=== PATIENT | female | born 1965 | race African-American/Black ===

== ENCOUNTER 2017-08-09 12:39 | Inpatient (IN) | payer MEDICARE, OTHER ==
[~2017-08-09] VITALS: Ht 175.3 cm; Wt 76.2 kg
[2017-08-09 15:36] LABS: CHLORIDE 103 mEq/L (98-107)
[2017-08-09 15:38] LABS: BASOPHILS % 1.1 % (0.0-2.0); HEMOGLOBIN. 12.1 g/dL (12.0-16.0); LYMPHOCYTES % 28.3 % (20.0-50.0); MEAN CORPUSCULAR HEMOGLOBIN 35.6 pg (28.0-32.0); MEAN CORPUSCULAR VOLUME 105.9 fL (81.0-99.0); MONOCYTES % 10.4 % (2.0-8.0); NEUTROPHILS % 58.2 % (40.0-76.0); PLATELET 169 x1000/uL (130-400); PROTHROMBIN TIME 10.8 sec (9.4-11.6); RED CELL DISTRIBUTION WIDTH 16.5 % (11.6-14.6)
[2017-08-09] MEDS ORDERED: ALBUTEROL (0.083%) 2.5MG/3ML NEB HHN ONE (16:45)
[2017-08-09] MEDS ORDERED: ACETAMINOPHEN 325MG TABLET PO PRN (18:45)
[2017-08-09 20:00] VITALS: BP_SYST 134; BP_SYST 201; BP_DIAS 48; BP_DIAS 95
[2017-08-09] MEDS ORDERED: ENOXAPARIN 30MG/0.3ML SYR SUBCUT SCH (21:00)
[2017-08-09] MEDS ORDERED: FAMOTIDINE 20MG TABLET PO SCH (21:00)
[2017-08-09] MEDS ORDERED: TEMAZEPAM 15MG CAPSULE PO PRN (21:00)
[2017-08-09] MEDS ORDERED: DEXTROSE 50% WATER 50ML SYRINGE IV PRN (21:15)
[2017-08-09] MEDS ORDERED: LISI10TA5 PO (23:05)
[2017-08-09] MEDS ORDERED: RANI150T12 PO (23:05)
[2017-08-10] VITALS: BP 106/48
[2017-08-10] MEDS ORDERED: SEVE800T8 PO (00:52)
[2017-08-10] MEDS ORDERED: CALC667T2 PO (00:52)
[2017-08-10 04:00] VITALS: BP 123/60
[2017-08-10 05:53] LABS: BASOPHILS % 1.3 % (0.0-2.0); EOSINOPHILS % 1.7 % (0.0-5.0); HEMATOCRIT. 33.5 % (36.0-48.0); HEMOGLOBIN. 11.3 g/dL (12.0-16.0); LYMPHOCYTES % 32.8 % (20.0-50.0); MEAN CORPUSCULAR HEMOGLOBIN 35.7 pg (28.0-32.0); MEAN CORPUSCULAR VOLUME 106.2 fL (81.0-99.0); MEAN PLATELET VOLUME 7.9 fl (7.4-10.4); MONOCYTES % 10.8 % (2.0-8.0); NEUTROPHILS % 53.4 % (40.0-76.0); PLATELET 142 x1000/uL (130-400); RED BLOOD CELL COUNT 3.15 mill/uL (4.2-5.4); RED CELL DISTRIBUTION WIDTH 16.9 % (11.6-14.6)
[2017-08-10 06:43] LABS: PHOSPHORUS 5.8 mg/dL (2.5-4.9)
[2017-08-10 08:00] VITALS: BP 128/71
[2017-08-10] MEDS: BLOOD SUGAR DIAGNOSTIC STRIP TEST SCH ×2 (08:05→12:21)
[2017-08-10] MEDS ORDERED: SEVELAMER CARBONATE 800 MG TABLET PO SCH ×2 (08:10→13:10)
[2017-08-10] MEDS: CALCIUM ACETATE 667MG CAPSULE PO SCH ×2 (08:43→13:10)
[2017-08-10] MEDS ORDERED: AMLODIPINE 10MG TABLET PO SCH (09:00)
[2017-08-10] MEDS ORDERED: FOLIC ACID/VITAMIN B COMP W-C TABLET PO SCH (09:00)
[2017-08-10 12:30] VITALS: BP 125/70
[2017-08-10 13:41] VITALS: BP 125/70
== END 2017-08-10 14:10 | disposition home or self-care (01) | DRG 640 ==
LOC: ER 12:42 → 7WST 16:40 → EDBEDREQTM 16:53 → EDBEDREQ 16:53 → ENRESERV 17:04
DX: E87.5 Hyperkalemia (principal); N18.6 End stage renal disease; E11.22 Type 2 diabetes mellitus with diabetic chronic kidney disease; E46 Unspecified protein-calorie malnutrition; I12.0 Hypertensive chronic kidney disease with stage 5 chronic kidney disease or end stage renal disease; E11.319 Type 2 diabetes mellitus with unspecified diabetic retinopathy without macular edema; Z94.0 Kidney transplant status; E78.5 Hyperlipidemia, unspecified; D64.9 Anemia, unspecified; F17.210 Nicotine dependence, cigarettes, uncomplicated; Z87.11 Personal history of peptic ulcer disease; Z96.641 Presence of right artificial hip joint; E21.1 Secondary hyperparathyroidism, not elsewhere classified; G90.8 Other disorders of autonomic nervous system; I45.10 Unspecified right bundle-branch block; I44.0 Atrioventricular block, first degree; K21.9 Gastro-esophageal reflux disease without esophagitis; Z86.73 Personal history of transient ischemic attack (TIA), and cerebral infarction without residual deficits; Z99.2 Dependence on renal dialysis; Z98.51 Tubal ligation status; Z87.19 Personal history of other diseases of the digestive system; Z87.01 Personal history of pneumonia (recurrent); E89.0 Postprocedural hypothyroidism; Z90.89 Acquired absence of other organs; Z88.0 Allergy status to penicillin; Z88.8 Allergy status to other drugs, medicaments and biological substances; Z79.899 Other long term (current) drug therapy
CPT/HCPCS: 36415; 71045; 80048; 80053; 82962; 83735; 84100; 84484; 85025; 85610; 93005; 99291; J1650; J7030; J7611

== ENCOUNTER 2018-06-26 23:14 | Inpatient (IN) | payer MEDICARE, OTHER ==
[~2018-06-26] VITALS: Ht 175.3 cm; Wt 79.4 kg
[~2018-06-26 23:14] MED LIST: CALC667T2 PO; LISI10TA5 PO; RANI150T43 PO; SEVE800T8 PO
[2018-06-27] VITALS (37 sets, daily range): BP systolic 88–183; BP diastolic 45–108
[2018-06-27] MEDS ORDERED: ONDANSETRON HCL 4MG/2ML INJ IV STA (00:37)
[2018-06-27 00:40] LABS: BASOPHILS % 0.5 % (0.0-2.0); EOSINOPHILS % 0.2 % (0.0-5.0); HEMATOCRIT. 41.5 % (36.0-48.0); HEMOGLOBIN. 13.4 g/dL (12.0-16.0); LYMPHOCYTES % 8.3 % (20.0-50.0); MEAN CORPUSCULAR HEMOGLOBIN 35.2 pg (28.0-32.0); MEAN CORPUSCULAR VOLUME 109.1 fL (81.0-99.0); MEAN PLATELET VOLUME 8.4 fl (7.4-10.4); MONOCYTES % 3.8 % (2.0-8.0); NEUTROPHILS % 87.2 % (40.0-76.0); PLATELET 138 x1000/uL (130-400); RED BLOOD CELL COUNT 3.81 mill/uL (4.2-5.4); RED CELL DISTRIBUTION WIDTH 16.4 % (11.6-14.6)
[2018-06-27 00:45] LABS: CHLORIDE 107 mEq/L (98-107)
[2018-06-27] MEDS ORDERED: CALCIUM CHLORIDE 1GM/10ML SYR IV ONE ×2 (00:45→15:32)
[2018-06-27] MEDS ORDERED: ALBUTEROL (0.083%) 2.5MG/3ML NEB HHN ONE (00:45)
[2018-06-27] MEDS ORDERED: DEXTROSE 50% WATER 50ML SYRINGE IV ONE (00:45)
[2018-06-27] MEDS ORDERED: SODIUM BICARBONATE 8.4% 1 MEQ/ML 50ML SYR IV ONE (00:45)
[2018-06-27] MEDS ORDERED: INSULIN REGULAR (HUMULIN R) 300UNITS/3ML IV ONE (00:45)
[2018-06-27] MEDS ORDERED: ONDANSETRON HCL 4MG/2ML INJ ONE (00:47)
[2018-06-27] MEDS ORDERED: SODIUM BICARBONATE 100 MEQ in DEXTROSE 5% WATER 1,000 ML IV SCH (01:00)
[2018-06-27] MEDS ORDERED: MAGNESIUM/ALUMINUM HYDROXIDE/SIMETHICONE 30ML UDC PO PRN (06:15)
[2018-06-27] MEDS ORDERED: DOCUSATE SODIUM 100MG CAPSULE PO PRN (06:15)
[2018-06-27] MEDS ORDERED: CLONIDINE 0.1MG TABLET PO PRN (06:15)
[2018-06-27] MEDS ORDERED: DIPHENHYDRAMINE 50MG/ML VIAL IV PRN (06:15)
[2018-06-27] MEDS ORDERED: LORAZEPAM 2MG/ML CPJ IV PRN (06:15)
[2018-06-27] MEDS ORDERED: HYDROCODONE/ACETAMINOPHEN 10/325MG TABLET PO PRN (06:15)
[2018-06-27] MEDS ORDERED: IPRATROPIUM/ALBUTEROL 0.5-3(2.5)MG/3ML NEB INH PRN (06:15)
[2018-06-27] MEDS ORDERED: GUAIFENESIN 200MG/10ML SUGAR FREE UDC PO PRN (06:15)
[2018-06-27] MEDS ORDERED: ACETAMINOPHEN 325MG TABLET PO PRN (06:15)
[2018-06-27] MEDS ORDERED: DEXTROSE 50% WATER 50ML SYRINGE IV PRN (06:15)
[2018-06-27] MEDS ORDERED: HYDROMORPHONE HCL/PF 2MG/ML CPJ IV PRN (06:15)
[2018-06-27] MEDS ORDERED: ONDANSETRON HCL 4MG/2ML INJ IV PRN (06:15)
[2018-06-27] MEDS: BLOOD SUGAR DIAGNOSTIC STRIP TEST SCH ×4 (06:51→21:06)
[2018-06-27] MEDS: INSULIN LISPRO 100 UNITS/ML SUBCUT SCH ×4 (07:00→21:00)
[2018-06-27] MEDS: ASPIRIN 81MG EC TABLET PO SCH (08:42)
[2018-06-27] MEDS: PANTOPRAZOLE SODIUM 40 MG/VIAL IV SCH (08:42)
[2018-06-27] MEDS: ONDANSETRON HCL 4MG/2ML INJ IV PRN (08:42)
[2018-06-27] MEDS: ENOXAPARIN 30MG/0.3ML SYR SUBCUT SCH (08:42)
[2018-06-27 12:36] LABS: HEMATOCRIT. 37.8 % (36.0-48.0); HEMOGLOBIN. 12.4 g/dL (12.0-16.0); MEAN CORPUSCULAR HEMOGLOBIN 34.9 pg (28.0-32.0); PLATELET 116 x1000/uL (130-400); RED BLOOD CELL COUNT 3.57 mill/uL (4.2-5.4); RED CELL DISTRIBUTION WIDTH 16.1 % (11.6-14.6)
[2018-06-27 12:49] LABS: BG BASE EXCESS 5.8 mmol/L (-2.0-2.0); BG CARBOXYHEMOGLOBIN 0.9 % (0.5-1.5); BG DEOXYHEMOGLOBIN 3.6 % (0.0-5.0); BG FRACTION INSPIRED OXYGEN 21; BG HCO3 ACT 29.2 mmol/L (22.0-26.0); BG METHEMOGLOBIN 0.1 % (0.0-1.5); BG OXYGEN SATURATION 96.4 % (92.0-98.5); BG OXYHEMOGLOBIN 95.4 % (94.0-97.0); BG PCO2 38.1 mmHg (35.0-45.0); BG PH 7.502 (7.350-7.450); BG PO2 87.1 mmHg (75.0-100.0); BG SAMPLE SITE RIGHT BRACHIAL; BG TOTAL HEMOGLOBIN 12.3 g/dL (12.0-18.0); BG VENT MODE ROOM AIR
[2018-06-27] MEDS: SODIUM CHLORIDE 0.9% INJ 3ML FLUSH IVF SCH ×2 (14:00→21:06)
[2018-06-27] MEDS ORDERED: LEVOFLOXACIN 250MG PREMIX 50 ML IV PRN (14:00)
[2018-06-27] MEDS ORDERED: GENTAMICIN 80MG PREMIX 100 ML IV PRN (14:45)
[2018-06-27 14:53] LABS: PLATELET ESTIMATE DECREASED
[2018-06-27] MEDS ORDERED: SODIUM BICARBONATE 8.4% MEQ/ML 50ML VIAL IV ONE (15:32)
[2018-06-27] MEDS ORDERED: BISACODYL 5MG TABLET PO PRN (16:15)
[2018-06-27] MEDS ORDERED: LACTULOSE 20G/30ML UDC PO PRN (16:15)
[2018-06-27 17:01] LABS: CREATINE KINASE MB FRACTION 1.6 ng/mL (0.5-3.6)
[2018-06-27] MEDS: NICOTINE 14MG PATCH TD SCH ×2 (17:48→17:52)
[2018-06-27] MEDS: HYDROMORPHONE HCL/PF 2MG/ML CPJ IV PRN (18:46)
[2018-06-27 22:41] LABS: CREATINE KINASE MB FRACTION 1.6 ng/mL (0.5-3.6)
[2018-06-28] VITALS (62 sets, daily range): BP systolic 113–193; BP diastolic 58–94
[2018-06-28] MEDS: HYDROMORPHONE HCL/PF 2MG/ML CPJ IV PRN ×2 (01:10→19:07)
[2018-06-28 05:00] LABS: BASOPHILS % 0.8 % (0.0-2.0); EOSINOPHILS % 1.3 % (0.0-5.0); HEMATOCRIT. 38.6 % (36.0-48.0); HEMOGLOBIN. 12.7 g/dL (12.0-16.0); LYMPHOCYTES % 18.6 % (20.0-50.0); MEAN CORPUSCULAR HEMOGLOBIN 35.3 pg (28.0-32.0); MEAN CORPUSCULAR VOLUME 107.3 fL (81.0-99.0); MEAN PLATELET VOLUME 8.5 fl (7.4-10.4); NEUTROPHILS % 71.3 % (40.0-76.0); PLATELET 112 x1000/uL (130-400); RED BLOOD CELL COUNT 3.59 mill/uL (4.2-5.4); RED CELL DISTRIBUTION WIDTH 15.8 % (11.6-14.6)
[2018-06-28 05:27] LABS: CHLORIDE 100 mEq/L (98-107)
[2018-06-28] MEDS: SODIUM CHLORIDE 0.9% INJ 3ML FLUSH IVF SCH ×3 (05:42→22:46)
[2018-06-28] MEDS: BLOOD SUGAR DIAGNOSTIC STRIP TEST SCH ×4 (05:42→21:22)
[2018-06-28] MEDS: INSULIN LISPRO 100 UNITS/ML SUBCUT SCH ×4 (05:42→21:00)
[2018-06-28] MEDS: ENOXAPARIN 30MG/0.3ML SYR SUBCUT SCH (08:00)
[2018-06-28] MEDS: NICOTINE 14MG PATCH TD SCH (09:00)
[2018-06-28] MEDS: PANTOPRAZOLE SODIUM 40 MG/VIAL IV SCH (10:51)
[2018-06-28] MEDS: ASPIRIN 81MG EC TABLET PO SCH (10:52)
[2018-06-28] MEDS: ONDANSETRON HCL 4MG/2ML INJ IV PRN (10:59)
[2018-06-28] MEDS: FOLIC ACID/VITAMIN B COMP W-C TABLET PO SCH (14:59)
[2018-06-28] MEDS: HYDRALAZINE 20MG/ML VIAL IV PRN (15:47)
[2018-06-28] MEDS: DOCUSATE SODIUM 100MG CAPSULE PO SCH (15:51)
[2018-06-29] VITALS (41 sets, daily range): BP systolic 59–173; BP diastolic 44–114
[2018-06-29] MEDS: HYDRALAZINE 20MG/ML VIAL IV PRN (02:09)
[2018-06-29 06:06] LABS: BASOPHILS % 0.4 % (0.0-2.0); EOSINOPHILS % 0.9 % (0.0-5.0); HEMATOCRIT. 35.9 % (36.0-48.0); HEMOGLOBIN. 11.9 g/dL (12.0-16.0); MEAN CORPUSCULAR HEMOGLOBIN 35.3 pg (28.0-32.0); MEAN CORPUSCULAR VOLUME 106.3 fL (81.0-99.0); MEAN PLATELET VOLUME 8.7 fl (7.4-10.4); MONOCYTES % 7.9 % (2.0-8.0); NEUTROPHILS % 80.8 % (40.0-76.0); PLATELET 104 x1000/uL (130-400); RED BLOOD CELL COUNT 3.37 mill/uL (4.2-5.4); RED CELL DISTRIBUTION WIDTH 15.6 % (11.6-14.6)
[2018-06-29 06:09] LABS: PHOSPHORUS 5.5 mg/dL (2.5-4.9)
[2018-06-29] MEDS: BLOOD SUGAR DIAGNOSTIC STRIP TEST SCH ×4 (06:47→21:00)
[2018-06-29] MEDS: INSULIN LISPRO 100 UNITS/ML SUBCUT SCH ×4 (06:47→23:12)
[2018-06-29] MEDS: SODIUM CHLORIDE 0.9% INJ 3ML FLUSH IVF SCH ×3 (06:48→23:13)
[2018-06-29] MEDS: FOLIC ACID/VITAMIN B COMP W-C TABLET PO SCH (08:34)
[2018-06-29] MEDS: PANTOPRAZOLE SODIUM 40 MG/VIAL IV SCH (08:34)
[2018-06-29] MEDS: ONDANSETRON HCL 4MG/2ML INJ IV PRN (08:34)
[2018-06-29] MEDS: DOCUSATE SODIUM 100MG CAPSULE PO SCH (08:34)
[2018-06-29] MEDS: ASPIRIN 81MG EC TABLET PO SCH (08:34)
[2018-06-29] MEDS: NICOTINE 14MG PATCH TD SCH (08:35)
[2018-06-29] MEDS: ENOXAPARIN 30MG/0.3ML SYR SUBCUT SCH (08:41)
[2018-06-29] MEDS: CALCIUM CARBONATE 500MG TABLET CHEW PO SCH ×2 (13:20→17:00)
[2018-06-30] VITALS: BP 121/59
[2018-06-30 04:00] VITALS: BP 160/69
[2018-06-30] MEDS: BLOOD SUGAR DIAGNOSTIC STRIP TEST SCH ×3 (05:45→17:33)
[2018-06-30] MEDS: INSULIN LISPRO 100 UNITS/ML SUBCUT SCH ×3 (05:56→17:33)
[2018-06-30] MEDS: HYDROMORPHONE HCL/PF 2MG/ML CPJ IV PRN ×3 (06:11→14:55)
[2018-06-30] MEDS: SODIUM CHLORIDE 0.9% INJ 3ML FLUSH IVF SCH ×2 (06:13→14:24)
[2018-06-30] MEDS: CALCIUM CARBONATE 500MG TABLET CHEW PO SCH ×3 (06:13→17:33)
[2018-06-30 08:25] LABS: BASOPHILS % 0.7 % (0.0-2.0); EOSINOPHILS % 1.7 % (0.0-5.0); HEMATOCRIT. 34.3 % (36.0-48.0); HEMOGLOBIN. 11.5 g/dL (12.0-16.0); MEAN CORPUSCULAR HEMOGLOBIN 35.6 pg (28.0-32.0); MEAN CORPUSCULAR VOLUME 105.7 fL (81.0-99.0); MONOCYTES % 13.6 % (2.0-8.0); PLATELET 102 x1000/uL (130-400); RED BLOOD CELL COUNT 3.24 mill/uL (4.2-5.4); RED CELL DISTRIBUTION WIDTH 15.8 % (11.6-14.6)
[2018-06-30 08:40] VITALS: BP 177/71
[2018-06-30] MEDS: NICOTINE 14MG PATCH TD SCH (09:00)
[2018-06-30] MEDS: FOLIC ACID/VITAMIN B COMP W-C TABLET PO SCH (09:42)
[2018-06-30] MEDS: ENOXAPARIN 30MG/0.3ML SYR SUBCUT SCH (09:43)
[2018-06-30] MEDS: ASPIRIN 81MG EC TABLET PO SCH (09:43)
[2018-06-30] MEDS: DOCUSATE SODIUM 100MG CAPSULE PO SCH (09:43)
[2018-06-30] MEDS: PANTOPRAZOLE SODIUM 40 MG/VIAL IV SCH (09:43)
[2018-06-30 12:00] VITALS: BP 166/66
[2018-06-30 18:01] VITALS: BP 125/75
[2018-06-30 20:00] VITALS: BP 146/67
[2018-07-01] MEDS ORDERED: FAMOTIDINE 20MG/2ML VIAL IV SCH (09:00)
== END 2018-06-30 20:40 | disposition home or self-care (01) | DRG 622 ==
LOC: ER 23:14 → MICUNO 06-27 01:25 → EDBEDREQ 06-27 01:31 → EDBEDREQTM 06-27 01:31 → EDBEDREQSVC 06-27 01:31 → ENRESERV 06-27 03:10 → 8WST 06-29 18:33
PROVIDERS: ADMIT Internal Medicine; ATTEND Internal Medicine
PROC: 5A1D70Z Performance of Urinary Filtration, Intermittent, Less than 6 Hours Per Day (ICD-10-PCS; 2018-06-27)
PROC: 02HV33Z Insertion of Infusion Device into Superior Vena Cava, Percutaneous Approach (ICD-10-PCS; principal; 2018-06-28)
PROC: B548ZZA Ultrasonography of Superior Vena Cava, Guidance (ICD-10-PCS; 2018-06-28)
PROC: 5A1D70Z Performance of Urinary Filtration, Intermittent, Less than 6 Hours Per Day (ICD-10-PCS; 2018-06-28)
PROC: 0JBR0ZZ Excision of Left Foot Subcutaneous Tissue and Fascia, Open Approach (ICD-10-PCS; 2018-06-30)
PROC: 0QDN0ZZ Extraction of Right Metatarsal, Open Approach (ICD-10-PCS; 2018-06-30)
PROC: 5A1D70Z Performance of Urinary Filtration, Intermittent, Less than 6 Hours Per Day (ICD-10-PCS; 2018-06-30)
DX: E87.5 Hyperkalemia (principal); G93.41 Metabolic encephalopathy; J96.00 Acute respiratory failure, unspecified whether with hypoxia or hypercapnia; N18.6 End stage renal disease; I13.2 Hypertensive heart and chronic kidney disease with heart failure and with stage 5 chronic kidney disease, or end stage renal disease; E44.1 Mild protein-calorie malnutrition; R65.10 Systemic inflammatory response syndrome (SIRS) of non-infectious origin without acute organ dysfunction; Z94.0 Kidney transplant status; L97.525 Non-pressure chronic ulcer of other part of left foot with muscle involvement without evidence of necrosis; L97.515 Non-pressure chronic ulcer of other part of right foot with muscle involvement without evidence of necrosis; N25.81 Secondary hyperparathyroidism of renal origin; E87.4 Mixed disorder of acid-base balance; E11.621 Type 2 diabetes mellitus with foot ulcer; I95.3 Hypotension of hemodialysis; E78.5 Hyperlipidemia, unspecified; E55.9 Vitamin D deficiency, unspecified; I44.7 Left bundle-branch block, unspecified; D64.9 Anemia, unspecified; E11.22 Type 2 diabetes mellitus with diabetic chronic kidney disease; K21.9 Gastro-esophageal reflux disease without esophagitis; I50.9 Heart failure, unspecified; R74.0 Nonspecific elevation of levels of transaminase and lactic acid dehydrogenase [LDH]; F17.210 Nicotine dependence, cigarettes, uncomplicated; Z96.642 Presence of left artificial hip joint; K59.00 Constipation, unspecified; E11.319 Type 2 diabetes mellitus with unspecified diabetic retinopathy without macular edema; E11.43 Type 2 diabetes mellitus with diabetic autonomic (poly)neuropathy; E11.649 Type 2 diabetes mellitus with hypoglycemia without coma; Z96.643 Presence of artificial hip joint, bilateral; Z91.19 Patient's noncompliance with other medical treatment and regimen; Z99.2 Dependence on renal dialysis; Z71.6 Tobacco abuse counseling; Z88.1 Allergy status to other antibiotic agents; Z83.3 Family history of diabetes mellitus; Z88.0 Allergy status to penicillin; Z91.14 Patient's other noncompliance with medication regimen; Z82.49 Family history of ischemic heart disease and other diseases of the circulatory system; Z98.51 Tubal ligation status; Z87.01 Personal history of pneumonia (recurrent); Z87.11 Personal history of peptic ulcer disease; Z91.15 Patient's noncompliance with renal dialysis; Z86.73 Personal history of transient ischemic attack (TIA), and cerebral infarction without residual deficits; Z68.25 Body mass index [BMI] 25.0-25.9, adult; Z79.84 Long term (current) use of oral hypoglycemic drugs
CPT/HCPCS: 36415; 36569; 36573; 36600; 71045; 74018; 80048; 82375; 82550; 82553; 82805; 82962; 83605; 83735; 84100; 84132; 84145; 84484; 84520; 85007; 85027; 93005; 93306; 96361; 96374; 96375; 99285; C1725; C9113; J0360; J1170; J1580; J1650; J1815; J1956; J2405; J3490; J7042; J7070; J7611

== ENCOUNTER 2019-05-04 13:23 | Inpatient (IN) | payer MEDICARE, OTHER ==
[~2019-05-04] VITALS: Ht 152.4 cm; Wt 79.8 kg
[~2019-05-04 13:23] MED LIST changes: +RANI-655 PO; -RANI150T43 PO
[2019-05-04] MEDS ORDERED: MORPHINE SULFATE 4 MG/ML CPJ (NOT FOR IM USE) IV STA (14:43)
[2019-05-04] MEDS ORDERED: ONDANSETRON HCL 4MG/2ML INJ IV STA (14:43)
[2019-05-04] MEDS ORDERED: SODIUM CHLORIDE 0.9% 1,000 ML IV ONE (14:43)
[2019-05-04 15:11] LABS: HEMATOCRIT. 46.9 % (36.0-48.0); HEMOGLOBIN. 15.4 g/dL (12.0-16.0); MEAN CORPUSCULAR HEMOGLOBIN 35.3 pg (28.0-32.0); MEAN CORPUSCULAR VOLUME 107.6 fL (81.0-99.0); MEAN PLATELET VOLUME 9.2 fl (7.4-10.4); PLATELET 164 x1000/uL (130-400); RED BLOOD CELL COUNT 4.35 mill/uL (4.2-5.4); RED CELL DISTRIBUTION WIDTH 17.3 % (11.6-14.6)
[2019-05-04 15:15] LABS: CHLORIDE 104 mEq/L (98-107)
[2019-05-04 15:55] LABS: PLATELET ESTIMATE NORMAL
[2019-05-04] MEDS ORDERED: NA PHOS,M-B/NA PHOS,DI-BA ENEMA 118ML PR PRN (21:00)
[2019-05-04] MEDS ORDERED: DIPHENHYDRAMINE 50MG/ML VIAL IV PRN (21:00)
[2019-05-04] MEDS ORDERED: MAGNESIUM/ALUMINUM HYDROXIDE/SIMETHICONE 30ML UDC PO PRN (21:00)
[2019-05-04] MEDS ORDERED: HYDROCODONE/ACETAMINOPHEN 5/325MG TABLET PO PRN (21:00)
[2019-05-04] MEDS ORDERED: ACETAMINOPHEN 325MG TABLET PO PRN (21:00)
[2019-05-04] MEDS ORDERED: ACETAMINOPHEN 650MG/20.3ML UDC GT PRN (21:00)
[2019-05-04] MEDS ORDERED: CLONIDINE 0.1MG TABLET PO PRN (21:00)
[2019-05-04] MEDS ORDERED: ACETAMINOPHEN 650MG SUPP PR PRN (21:00)
[2019-05-04] MEDS ORDERED: ONDANSETRON HCL 4MG/2ML INJ IV PRN (21:00)
[2019-05-04] MEDS ORDERED: DOCUSATE SODIUM 100MG CAPSULE PO PRN (21:00)
[2019-05-04 23:30] VITALS: BP 179/73
[2019-05-05] MEDS ORDERED: SODIUM CHLORIDE 0.45% 1,000 ML IV SCH
[2019-05-05] MEDS: FAMOTIDINE 20MG/2ML VIAL IV SCH ×2 (01:20→21:19)
[2019-05-05] MEDS: METOCLOPRAMIDE HCL 10MG/2ML VIAL IV SCH ×4 (01:20→17:57)
[2019-05-05 04:00] VITALS: BP 126/62
[2019-05-05] MEDS: SODIUM CHLORIDE 0.9% INJ 3ML FLUSH IVF SCH ×3 (06:14→21:18)
[2019-05-05 06:57] LABS: HEMATOCRIT. 38.5 % (36.0-48.0); HEMOGLOBIN. 12.8 g/dL (12.0-16.0); MEAN CORPUSCULAR HEMOGLOBIN 35.6 pg (28.0-32.0); MEAN CORPUSCULAR VOLUME 106.8 fL (81.0-99.0); MEAN PLATELET VOLUME 8.8 fl (7.4-10.4); PLATELET 137 x1000/uL (130-400); RED BLOOD CELL COUNT 3.61 mill/uL (4.2-5.4); RED CELL DISTRIBUTION WIDTH 16.9 % (11.6-14.6)
[2019-05-05 07:59] VITALS: BP 134/56
[2019-05-05] MEDS: GUAIFENESIN 200MG/10ML SUGAR FREE UDC PO PRN ×2 (08:11→18:57)
[2019-05-05] MEDS: METOPROLOL TARTRATE 25MG TABLET PO SCH ×2 (08:12→21:19)
[2019-05-05 09:31] LABS: CHLORIDE 107 mEq/L (98-107)
[2019-05-05 09:41] LABS: LDL CHOLESTEROL 57 mg/dL (5-100)
[2019-05-05 09:43] LABS: HDL CHOLESTEROL 82 mg/dL (40-59)
[2019-05-05] MEDS ORDERED: MIDODRINE HCL 5MG TABLET PO SCH (10:00)
[2019-05-05] MEDS: SEVELAMER CARBONATE 800 MG TABLET PO SCH ×2 (11:56→17:57)
[2019-05-05 12:00] VITALS: BP 123/63
[2019-05-05 16:00] VITALS: BP 108/51
[2019-05-05 20:00] VITALS: BP 123/61
[2019-05-06] VITALS: BP 103/50
[2019-05-06] MEDS: METOCLOPRAMIDE HCL 10MG/2ML VIAL IV SCH ×4 (00:05→17:09)
[2019-05-06 04:00] VITALS: BP 119/57
[2019-05-06] MEDS: SODIUM CHLORIDE 0.9% INJ 3ML FLUSH IVF SCH (05:17)
[2019-05-06 05:24] LABS: PLATELET ESTIMATE NORMAL
[2019-05-06 08:00] VITALS: BP 106/43
[2019-05-06] MEDS ORDERED: FOLIC ACID/VITAMIN B COMP W-C TABLET PO SCH (09:00)
[2019-05-06] MEDS: SEVELAMER CARBONATE 800 MG TABLET PO SCH ×3 (09:15→17:09)
[2019-05-06] MEDS: METOPROLOL TARTRATE 25MG TABLET PO SCH (09:15)
[2019-05-06 12:00] VITALS: BP 107/57
[2019-05-06 12:53] LABS: BASOPHILS % 0.5 % (0.0-2.0); EOSINOPHILS % 0.1 % (0.0-5.0); HEMATOCRIT. 35.5 % (36.0-48.0); LYMPHOCYTES % 8.9 % (20.0-50.0); MEAN CORPUSCULAR HEMOGLOBIN 35.8 pg (28.0-32.0); MEAN CORPUSCULAR VOLUME 106.2 fL (81.0-99.0); MEAN PLATELET VOLUME 8.6 fl (7.4-10.4); MONOCYTES % 12.5 % (2.0-8.0); PLATELET 112 x1000/uL (130-400); RED BLOOD CELL COUNT 3.35 mill/uL (4.2-5.4); RED CELL DISTRIBUTION WIDTH 16.3 % (11.6-14.6)
[2019-05-06 13:06] LABS: CHLORIDE 101 mEq/L (98-107)
[2019-05-06 16:00] VITALS: BP 128/64
[2019-05-06 16:47] VITALS: BP_SYST 108; BP_SYST 113; BP_DIAS 58; BP_DIAS 66
== END 2019-05-06 18:20 | disposition home health service (06) | DRG 391 ==
LOC: ER 13:23 → 8WST 17:52 → EDBEDREQTM 18:07 → ENRESERV 21:23
PROVIDERS: ADMIT Family Medicine; ATTEND Family Medicine
PROC: 5A1D70Z Performance of Urinary Filtration, Intermittent, Less than 6 Hours Per Day (ICD-10-PCS; 2019-05-05)
PROC: 5A1D70Z Performance of Urinary Filtration, Intermittent, Less than 6 Hours Per Day (ICD-10-PCS; principal; 2019-05-06)
DX: K29.00 Acute gastritis without bleeding (principal); N18.6 End stage renal disease; N25.81 Secondary hyperparathyroidism of renal origin; Z94.0 Kidney transplant status; I12.0 Hypertensive chronic kidney disease with stage 5 chronic kidney disease or end stage renal disease; E11.22 Type 2 diabetes mellitus with diabetic chronic kidney disease; E11.319 Type 2 diabetes mellitus with unspecified diabetic retinopathy without macular edema; E83.39 Other disorders of phosphorus metabolism; E86.0 Dehydration; E87.5 Hyperkalemia; Z96.642 Presence of left artificial hip joint; G90.8 Other disorders of autonomic nervous system; K21.9 Gastro-esophageal reflux disease without esophagitis; M47.9 Spondylosis, unspecified; K52.9 Noninfective gastroenteritis and colitis, unspecified; E78.5 Hyperlipidemia, unspecified; F17.210 Nicotine dependence, cigarettes, uncomplicated; Z82.49 Family history of ischemic heart disease and other diseases of the circulatory system; Z99.2 Dependence on renal dialysis; Z86.19 Personal history of other infectious and parasitic diseases; Z86.73 Personal history of transient ischemic attack (TIA), and cerebral infarction without residual deficits; Z87.81 Personal history of (healed) traumatic fracture; Z88.1 Allergy status to other antibiotic agents; Z88.0 Allergy status to penicillin; Z79.899 Other long term (current) drug therapy
CPT/HCPCS: 36415; 71045; 74176; 80053; 80061; 82962; 84484; 85025; 93005; 96374; 99285; J2270; J2405; J2765; J3490; J7030